=== PATIENT | male | born 1980 | race Caucasian/White ===

== ENCOUNTER 2019-01-22 08:40 | Observation (INO) ==
[2019-01-22] MEDS ORDERED: IOPAMIDOL 100 ML BOTTLE IV ONE (08:41)
[2019-01-22] MEDS ORDERED: 0.9 % SODIUM CHLORIDE 1,000 ML IV ONE (08:49)
[2019-01-22] MEDS ORDERED: 0.9 % SODIUM CHLORIDE 2,000 ML IV ONE (09:35)
[2019-01-22] MEDS ORDERED: ONDANSETRON 4 MG/2 ML VIAL IV ONE (09:35)
[2019-01-22 09:36] LABS: Mean Cell Volume 93.5 fL (80.0-100.0); Mean Corpuscular HGB Conc 33.1 g/dL (31.0-36.0); Platelet Count 293 K/mcL (140-440); RBC 5.93 M/mcL (4.50-5.90); Red Cell Distribution Width 12.2 % (11.5-14.5)
--- NOTE | 2019-01-22 09:39 | Emergency Department Note ---
Abdominal Pain HPI - General Chief Complaint: Abdominal Pain Stated Complaint: right lower abd pain, diarrhea, nausea Time Seen by Provider: 01/22/19 09:30 Source: patient Mode of arrival: ambulatory Limitations: no limitations - History of Present Illness HPI Narrative: 38-year-old male complaining of right lower quadrant pain for the last 48 hours. It is severe sharp crampy. Not taking any medicine for. He has had nausea vomiting and diarrhea with that. He is having to hold onto that area- Crampy colicky. Denies fever. No difficulty urinating but he has been having trouble staying hydrated - Related Data Home Medications Medication Instructions Recorded Confirmed No Known Home Meds 01/22/19 01/22/19 Allergies Allergy/AdvReac Type Severity Reaction Status Date / Time No Known Drug Allergies Allergy Verified 09/27/17 13:51 Review of Systems All systems ED: reviewed and negative except as stated. Abdominal Pain PMH - Past Medical History Attestation: Yes: The following information was validated with the patient. Medical history: Reports: arthritis Surgical history ED: Reports: orthopedic, other (Multiple knee) Psychiatric history: Reports: no psych history, other (suspect depression due to pain and debility) - Social History Smoking status: Current some day smoker Alcohol use: Reports: Unknown Drug use: Reports: none Physical Exam Some distress secondary to pain. Normocephalic atraumatic. Conjunctive are clear sclerae nonicteric. No nasal discharge or congestion. Oropharynx pink moist.. Neck is supple without lymphadenopathy thyromegaly. No carotid bruit. Heart is regular rate and rhythm no murmur appreciated. Lungs clear to auscultation bilaterally without wheezes rales rhonchi or respiratory distress. Abdomen is somewhat firm but nondistended. Very tender right lower quadrant. Worse with pressure. McBurney's point positive. No pedal edema. Alert oriented able answer questions properly Limitations: no limitations Course Vital Signs Temperature 97.4 F 01/22/19 08:41 Pulse Rate 89 01/22/19 08:41 Respiratory Rate 20 01/22/19 08:41 Blood Pressure 137/97 01/22/19 08:41 Pulse Oximetry (%) 98 01/22/19 08:41 Temperature 97.4 F 01/22/19 08:41 Pulse Rate 89 01/22/19 08:41 Respiratory Rate 20 01/22/19 08:41 Blood Pressure 145/101 01/22/19 09:31 Pulse Oximetry (%) 98 01/22/19 08:41 Abdominal Pain - Lab Data Lab results reviewed: Yes I reviewed the patient's lab results. Result diagrams: 01/22/19 08:57 01/22/19 08:57 Lab Results 01/22/19 01/22/19 01/22/19 Range/Units 08:57 08:57 08:57 WBC 11.9 H (4.5-11.0) K/mcL RBC 5.93 H (4.50-5.90) M/mcL Hgb 18.3 H (13.5-16.5) g/dL Hct 55.4 H (41.0-55.0) % MCV 93.5 (80.0-100.0) fL MCH 30.9 (26.0-34.0) pg MCHC 33.1 (31.0-36.0) g/dL RDW 12.2 (11.5-14.5) % Plt Count 293 (140-440) K/mcL MPV 7.6 (7.4-10.4) fL Total Counted 100 Seg Neutrophils % 78 (38-78) % Band Neutrophils % Not Reportable Lymphocytes % 18 (15-49) % Monocytes % (Manual) 4 (1-12) % Platelet Estimate Normal (NORMAL) RBC Morphology Normal (NORMAL) VBG Lactic Acid 1.0 (0.5-2.0) mmol/L Sodium 138 (133-145) mmol/L Potassium 4.3 (3.3-5.1) mmol/L Chloride 104 (96-108) mmol/L Carbon Dioxide 22 (22-30) mmol/L Anion Gap 12.0 (8-16) BUN 18 (6-20) mg/dl Creatinine 1.0 (0.7-1.2) mg/dl GFR Calculation 96 Glucose 103 (70-105) mg/dL Calcium 9.9 (8.6-10.4) mg/dl Total Bilirubin 0.6 (0.0-1.0) mg/dL AST 20 (0-37) U/l ALT 31 (0-40) U/l Alkaline Phosphatase 70 (39-117) U/L Total Protein 8.2 (5.9-8.4) gm/dL Albumin 4.9 (3.2-5.2) gm/dL Globulin 3.3 (2.2-3.7) gm/dL Albumin/Globulin Ratio 1.5 (1.0-2.3) Lipase (7-60) U/L 01/22/19 Range/Units 08:57 WBC (4.5-11.0) K/mcL RBC (4.50-5.90) M/mcL Hgb (13.5-16.5) g/dL Hct (41.0-55.0) % MCV (80.0-100.0) fL MCH (26.0-34.0) pg MCHC (31.0-36.0) g/dL RDW (11.5-14.5) % Plt Count (140-440) K/mcL MPV (7.4-10.4) fL Total Counted Seg Neutrophils % (38-78) % Band Neutrophils % Lymphocytes % (15-49) % Monocytes % (Manual) (1-12) % Platelet Estimate (NORMAL) RBC Morphology (NORMAL) VBG Lactic Acid (0.5-2.0) mmol/L Sodium (133-145) mmol/L Potassium (3.3-5.1) mmol/L Chloride (96-108) mmol/L Carbon Dioxide (22-30) mmol/L Anion Gap (8-16) BUN (6-20) mg/dl Creatinine (0.7-1.2) mg/dl GFR Calculation Glucose (70-105) mg/dL Calcium (8.6-10.4) mg/dl Total Bilirubin (0.0-1.0) mg/dL AST (0-37) U/l ALT (0-40) U/l Alkaline Phosphatase (39-117) U/L Total Protein (5.9-8.4) gm/dL Albumin (3.2-5.2) gm/dL Globulin (2.2-3.7) gm/dL Albumin/Globulin Ratio (1.0-2.3) Lipase 26 (7-60) U/L - Radiology Data Radiology results reviewed: Yes I reviewed the patient's radiology results. CT scan shows equivocal early appendicitis but otherwise unremarkable Disposition Pt seen by [facility] [facility]/PA only: No Clinical Impression: Acute appendicitis Qualifiers: Acute appendicitis type: with localized peritonitis Appendicitis gangrene presence: unspecified whether gangrene present Appendicitis perforation presence: without perforation Appendicitis abscess presence: without abscess Qualified Code(s): K35.30 - Acute appendicitis with localized peritonitis, without perforation or gangrene Summary: Right lower quadrant pain with nausea vomiting diarrhea. Concern for possible appendicitis versus gastroenteritis. Start IV fluids Zofran Dilaudid for pain. Laboratory and CT scan abdomen pelvis for workup CT scan was equivocal for appendicitis, the base the appendix is dilated which suggests early appendicitis. He does have features of appendicitis including leukocytosis severe right lower quadrant pain and an equivocal CT scan. However other features are less classic such as nausea vomiting diarrhea and an otherwise unremarkable CT scan, i.e. no fat stranding or fluid collection. Discussed case with Dr. Ken Freeman who agreed to accept the patient for observation status to monitor to see if this is appendicitis versus gastroenteritis. We will start antibiotic after blood culture Disposition: Xfer As Outpt/Obs ([facility]) Condition: Fair Referrals: Fast,Jose Eduardo, COMPANY DOCTOR [Primary Care Provider] -
[2019-01-22] MEDS: HYDROmorphone 2 MG/ML VIAL IV PRN ×6 (09:51→22:20)
[2019-01-22 09:52] LABS: ALT/SGPT 31 U/l (0-40); Albumin 4.9 gm/dL (3.2-5.2); Albumin/Globulin Ratio 1.5 (1.0-2.3); Alkaline Phosphatase 70 U/L (39-117); Blood Urea Nitrogen 18 mg/dl (6-20)
[2019-01-22 10:16] LABS: Lymphocytes % 18 % (15-49); Monocytes % (Manual) 4 % (1-12); Platelet Estimate NORMAL (NORMAL); RBC Morphology NORMAL (NORMAL); Segmented Neutrophils % 78 % (38-78)
--- NOTE | 2019-01-22 10:41 | Cat Scan Report ---
CLINICAL INFORMATION: Right lower quadrant pain nausea and diarrhea COMPARISON: None. TECHNIQUE: Following injection of intravenous contrast the patient was scanned during the portal venous phase from the diaphragm through the symphysis pubis. Sagittal and coronal reformats were created.. The radiation exposure was limited using dose reduction technology. FINDINGS: The lung bases are clear. The liver, gallbladder, spleen pancreas, adrenals and kidneys are normal. The aorta is normal in caliber and there is no plaque formation. The appendix is relatively elongated and folded upon itself. The base of the appendix is borderline dilated and measuring up to 8 mm. This tapers to 3 mm at the tip. No stone is seen within the lumen and there is no surrounding inflammation. Large and small intestine are otherwise normal without evidence of inflammatory bowel disease, diverticulitis ileus or obstruction. Urinary bladder is decompressed. No abnormality seen within the prostate or seminal vesicles. No ascites mass or adenopathy are present within the abdomen or pelvis. Incidentally noted is a small to intermediate size midline bulge at L4-5. IMPRESSION: Borderline thickened wall of the base of the appendix with no surrounding inflammation. This could be an anatomic variant or early stage of appendicitis. Dr. Huang was called with the results Interpreted and Authenticated by: Mika Enamorado 01/22/19
[2019-01-22] MEDS ORDERED: ceFAZolin 1 GM VIAL IV ONE (10:55)
[2019-01-22] MEDS ORDERED: NALOXONE HCL 0.4 MG/ML VIAL IV PRN (10:55)
[2019-01-22] MEDS ORDERED: PROMETHAZINE 25 MG/ML VIAL IM PRN (10:55)
[2019-01-22] MEDS: LACTATED RINGERS 1,000 ML IV SCH ×2 (11:13→12:45)
[2019-01-22 13:15] LABS: Appearance,Urine CLEAR; Bacteria,Urine 0 /hpf (0); Bilirubin,Urine NEG (NEG); Color,Urine YELLOW; Glucose,Urine (UA) NEGATIVE (NEG); Leukocyte Esterase,Urine NEG /uL (NEG); Protein,Urine NEG (NEG); Specific Gravity,Urine 1.059 (1.000-1.035); Urine Blood NEG mg/dL (<0.03); Urine RBC < 1 /hpf (0-1); Urine Squamous Epithelial Cell < 1 /hpf (0-4); Urine WBC 0 /hpf (0-4); Urobilinogen,Urine NEG (NEG)
--- NOTE | 2019-01-22 14:57 | General Surg History&Physical ---
History of Present Illness Patient information: Note initiated : 01/22/19 at 2:55 pm Service Date, if different from initiated Date: [] Patient: Ayush Yoon a 38 y/o M admitted on 01/22/19 for Right Lower Abd Pain, Diarrhea, Nausea. Chief Complaint: [] HPI: Mr. Yoon is a 38 year old M admitted for abdominal pain. The patient had onset of abdominal pain in the dietitian consultant 21 January. This was followed by burping and then multiple episodes of diarrhea. The pain localized to her lower abdomen on both sides and became much worse about 3 AM this morning. This was followed by multiple episodes of nausea and vomiting totaling about 6 times. This was followed by more diarrheal stools. Since his pain was worse he was seen in the emergency room where he was found to have mild leukocytosis of 11.[address] which showed minimal thickening of the base of the appendix without any periappendiceal edema or fecalith. The pain now is localized in the right lower quadrant. Patient is admitted for treatment and observation. Most likely diagnosis is acute toxic gastroenteritis but must rule out appendicitis Review of Systems - Constitutional no fatigue, no fever(s), no malaise, no weakness - EENT Nose, mouth and throat: no dysphagia, no mouth pain - Cardiovascular no chest pain, no claudication, no dyspnea on exertion, no palpatations, no slow heart rate, no syncope - Respiratory no cough, no dyspnea on exertion, no wheezing, no pain on inspirtation, no excessive phlegm production, no pain with cough - Gastrointestinal belching, bloating, cramping, diarrhea (no as well the different things as Ceasar for similar FCR a), heartburn, loose stools, nausea (jellaghe), vomiting ( mental status: No known) - Genitourinary no dysuria, no urinary frequency, no urinary hesitancy - Musculoskeletal abnormal gait, arthralgias, joint swelling, stiffness Past History Past surgical history: Multiple operative procedures left knee A tonsillectomy Past family history: Mother age 67 healthy father age 66 diabetes mellitus and myasthenia gravis 2 siblings alive and well without illness Past social history: Everyday tobacco use Occasional alcohol use Denies drug use Medications and Allergies Home Medications Medication Instructions Recorded Confirmed Type No Known Home Meds 01/22/19 01/22/19 History Allergies Allergy/AdvReac Type Severity Reaction Status Date / Time No Known Drug Allergies Allergy Verified 09/27/17 13:51 Exam Temp Pulse Resp BP Pulse Ox 96.1 F L 81 20 142/64 97 01/22/19 12:24 01/22/19 12:24 01/22/19 12:24 01/22/19 12:24 01/22/19 12:24 - General physical appearance well developed, well nourished, no distress - Eyes PERRL, normal ocular movement - ENT normal pinna, normal nares, normal mucosa, no hearing loss, no congestion - Head Head exam IM: Present: atraumatic, normocephalic - Neck no masses, no bruits, trachea midline, no lymphadenopathy, no venous distension - Cardiovascular Cardiovascular exam IM: Present: normal rate and rhythm - Respiratory normal expansion, normal respiratory effort, clear to percussion, clear to auscultation - Abdomen Abdomen: Present: soft, tender (moderate tenderness right lower quadrant and hypogastrium; good active bowel sounds; no mass), bowel sounds Hernia: Present: none - Genitourinary Present: normal penis with no external lesions - Integumentary Present: no rash, no growths, no abnormal pigmentation - Neurologic Present: normal coordination, normal sensation - Musculoskeletal Present: normal gait, normal posture, other (operative changes left knee with mild swelling and hypertrophy) - Psychiatric Present: oriented to time, oriented to person, oriented to place, speech is normal, memory intact Assessment and Plan (1) Acute abdominal pain in right lower quadrant Continue antibiotics Follow-up labs and abdominal x-rays in the morning May have clear liquids to night Status: Acute (2) Nausea, vomiting, and diarrhea Status: Acute
[2019-01-22] MEDS: DICYCLOMINE 20 MG TABLET PO SCH ×2 (15:42→20:45)
[2019-01-22] MEDS: 0.9 % SODIUM CHLORIDE 1,000 ML IV SCH ×2 (15:42→22:46)
[2019-01-22] MEDS: NICOTINE 21 MG PATCH TOPICAL SCH (16:00)
[2019-01-22] MEDS: ONDANSETRON 4 MG/2 ML VIAL IV PRN (16:03)
[2019-01-22] MEDS: PIPERACILLIN SODIUM/TAZOBACTAM 3.375 GM in DEXTROSE 5% IN WATER 50 ML IV SCH ×2 (17:31→23:49)
[2019-01-22] MEDS ORDERED: CALCIUM CARBONATE 500 MG TAB.CHEW CHEWED PRN (18:09)
[2019-01-22] MEDS: PANTOPRAZOLE 40 MG VIAL IV SCH (19:28)
[2019-01-23] MEDS: HYDROmorphone 2 MG/ML VIAL IV PRN ×7 (03:59→22:32)
[2019-01-23 05:39] LABS: Basophils # (Auto) 0 K/mcL (0.0-0.3); Basophils % (Auto) 0.3 % (0.0-2.0); Eosinophils # (Auto) 0.2 K/mcL (0.0-0.7); Eosinophils % (Auto) 2.5 % (0.0-7.0); Granulocytes % (Auto) 57.9 % (38.0-78.0); Lymphocytes # (Auto) 2.4 K/mcL (1.5-4.8); Lymphocytes % (Auto) 31.7 % (15.5-49.0); Mean Cell Volume 93.8 fL (80.0-100.0); Monocytes # (Auto) 0.6 K/mcL (0.1-0.9); Monocytes % (Auto) 7.6 % (1.0-12.0); Platelet Count 218 K/mcL (140-440); RBC 4.31 M/mcL (4.50-5.90); Red Cell Distribution Width 12.4 % (11.5-14.5)
[2019-01-23] MEDS: 0.9 % SODIUM CHLORIDE 1,000 ML IV SCH ×5 (05:40→23:37)
[2019-01-23] MEDS: PIPERACILLIN SODIUM/TAZOBACTAM 3.375 GM in DEXTROSE 5% IN WATER 50 ML IV SCH ×4 (05:51→23:34)
[2019-01-23 06:05] LABS: ALT/SGPT 18 U/l (0-40); Albumin 3.6 gm/dL (3.2-5.2); Albumin/Globulin Ratio 1.6 (1.0-2.3); Alkaline Phosphatase 47 U/L (39-117); Bilirubin,Direct < 0.2 mg/dL (0.0-0.3); Blood Urea Nitrogen 13 mg/dl (6-20); Gamma Glutamyl Transpeptidase 21 U/L (8-61); Uric Acid 5.3 mg/dL (2.5-8.0)
[2019-01-23] MEDS: PANTOPRAZOLE 40 MG VIAL IV SCH ×2 (06:51→17:35)
[2019-01-23] MEDS ORDERED: PANTOPRAZOLE 40 MG VIAL IV SCH (07:30)
[2019-01-23] MEDS: ONDANSETRON 4 MG/2 ML VIAL IV PRN (08:03)
[2019-01-23] MEDS: DICYCLOMINE 20 MG TABLET PO SCH ×4 (08:13→21:24)
[2019-01-23] MEDS ORDERED: BENZOCAINE/MENTHOL 1 LOZENGE PO PRN (08:16)
[2019-01-23] MEDS ORDERED: MAGNESIUM SULFATE IN WATER 4 GM/100 ML BAG IV ONE (08:30)
[2019-01-23] MEDS: NICOTINE 21 MG PATCH TOPICAL SCH ×2 (09:59→15:45)
--- NOTE | 2019-01-23 13:14 | General Surgery Progress Note ---
Subjective Patient reports: still having pain, tolerating liquids well, flatus, afebrile Narrative: Note initiated : 01/23/19 at 1:11 pm Service Date, if different from initiated Date: [] Patient: Ayush Yoon 38 y/o M admitted on 01/22/19 for Right Lower Abd Pain, Diarrhea, Nausea. Chief Complaint: [patient is afebrile. He still has pain in the right lower quadrant. He is tolerating liquids without difficulty though he does have mild nausea. White blood count 7.5, magnesium 1.5.] Objective Temp Pulse Resp BP Pulse Ox 96.1 F L 65 16 116/72 96 01/23/19 11:25 01/23/19 11:25 01/23/19 11:25 01/23/19 11:25 01/23/19 11:25 - Additional Data Intake & Output - Last 24 hours: Intake & Output 01/21/19 01/22/19 01/23/19 01/24/19 05:59 05:59 05:59 05:59 Intake Total 4839 700 Output Total 325 875 Balance 4514 -175 Weight 282 lb 14.4 oz - General physical appearance well developed, well nourished, no distress - Eyes PERRL, normal ocular movement - ENT normal pinna, normal nares, normal mucosa, no hearing loss, no congestion - Neck no masses, no bruits, trachea midline, no lymphadenopathy, no venous distension - Respiratory normal expansion, normal respiratory effort, clear to auscultation - Cardiovascular Cardiovascular exam: Present: normal rate and rhythm, RRR, +S1, +S2. Absent: JVD, tachycardia - Abdomen tender (moderate tenderness right lower abdomen diffusely over the entire right lower quadrant; good active bowel sounds; mild distention), bowel sounds (present), surgical scars (none), masses (none) - Integumentary no rash, no growths, no abnormal pigmentation - Neurologic normal coordination, normal sensation - Musculoskeletal normal gait, normal posture - Psychiatric oriented to time, oriented to person, oriented to place, speech is normal, memory intact - Labs 01/23/19 04:00 01/23/19 04:00 Diabetes panel 01/23/19 Range/Units 04:00 Sodium 137 (133-145) mmol/L Potassium 3.7 (3.3-5.1) mmol/L Chloride 103 (96-108) mmol/L Carbon Dioxide 28 (22-30) mmol/L BUN 13 (6-20) mg/dl Creatinine 0.9 (0.7-1.2) mg/dl Glucose 88 (70-105) mg/dL Calcium 8.1 L (8.6-10.4) mg/dl AST 12 (0-37) U/l ALT 18 (0-40) U/l Alkaline Phosphatase 47 (39-117) U/L Total Protein 5.8 L (5.9-8.4) gm/dL Albumin 3.6 (3.2-5.2) gm/dL Triglycerides 141 (<150) mg/dl Calcium panel 01/23/19 Range/Units 04:00 Calcium 8.1 L (8.6-10.4) mg/dl Phosphorus 2.7 (2.7-4.5) mg/dL Albumin 3.6 (3.2-5.2) gm/dL Pituitary panel 01/23/19 Range/Units 04:00 Sodium 137 (133-145) mmol/L Potassium 3.7 (3.3-5.1) mmol/L Chloride 103 (96-108) mmol/L Carbon Dioxide 28 (22-30) mmol/L BUN 13 (6-20) mg/dl Creatinine 0.9 (0.7-1.2) mg/dl Glucose 88 (70-105) mg/dL Calcium 8.1 L (8.6-10.4) mg/dl Adrenal panel 01/23/19 Range/Units 04:00 Sodium 137 (133-145) mmol/L Potassium 3.7 (3.3-5.1) mmol/L Chloride 103 (96-108) mmol/L Carbon Dioxide 28 (22-30) mmol/L BUN 13 (6-20) mg/dl Creatinine 0.9 (0.7-1.2) mg/dl Glucose 88 (70-105) mg/dL Calcium 8.1 L (8.6-10.4) mg/dl Total Bilirubin 0.6 (0.0-1.0) mg/dL AST 12 (0-37) U/l ALT 18 (0-40) U/l Alkaline Phosphatase 47 (39-117) U/L Total Protein 5.8 L (5.9-8.4) gm/dL Albumin 3.6 (3.2-5.2) gm/dL Assessment and Plan (1) Acute abdominal pain in right lower quadrant Status: Acute Assessment and plan: Patient will continue present therapy throughout the night. If his right lower quadrant tenderness persists he has been informed that diagnostic laparoscopy with probable appendectomy will be done tomorrow. He'll be made nothing by mouth after midnight. Current Visit: Yes (2) Nausea, vomiting, and diarrhea Status: Acute Assessment and plan: Nausea persists but vomiting has resolved Current Visit: Yes - Time Spent With Patient Total time spent is greater than 50% in coordination of care (as documented) at patient's floor/unit and/or counseling patient:
[2019-01-24] MEDS: HYDROmorphone 2 MG/ML VIAL IV PRN ×7 (03:23→23:21)
[2019-01-24] MEDS: PIPERACILLIN SODIUM/TAZOBACTAM 3.375 GM in DEXTROSE 5% IN WATER 50 ML IV SCH ×3 (05:27→18:05)
[2019-01-24 06:08] LABS: Basophils # (Auto) 0 K/mcL (0.0-0.3); Basophils % (Auto) 0.3 % (0.0-2.0); Eosinophils # (Auto) 0.2 K/mcL (0.0-0.7); Eosinophils % (Auto) 2.8 % (0.0-7.0); Granulocytes % (Auto) 63.3 % (38.0-78.0); Lymphocytes # (Auto) 2.1 K/mcL (1.5-4.8); Lymphocytes % (Auto) 27.1 % (15.5-49.0); Mean Cell Volume 94.3 fL (80.0-100.0); Mean Corpuscular HGB Conc 32.8 g/dL (31.0-36.0); Monocytes # (Auto) 0.5 K/mcL (0.1-0.9); Monocytes % (Auto) 6.5 % (1.0-12.0); Platelet Count 224 K/mcL (140-440); RBC 4.54 M/mcL (4.50-5.90)
[2019-01-24 06:56] LABS: ALT/SGPT 16 U/l (0-40); Albumin 3.8 gm/dL (3.2-5.2); Albumin/Globulin Ratio 1.6 (1.0-2.3); Alkaline Phosphatase 50 U/L (39-117); Bilirubin,Direct < 0.2 mg/dL (0.0-0.3); Blood Urea Nitrogen 5 mg/dl (6-20); Gamma Glutamyl Transpeptidase 23 U/L (8-61); Uric Acid 4.5 mg/dL (2.5-8.0)
[2019-01-24] MEDS: PANTOPRAZOLE 40 MG VIAL IV SCH ×2 (08:10→18:05)
[2019-01-24] MEDS: 0.9 % SODIUM CHLORIDE 1,000 ML IV SCH ×4 (08:13→23:15)
[2019-01-24] MEDS: DICYCLOMINE 20 MG TABLET PO SCH ×4 (09:13→20:34)
[2019-01-24] MEDS ORDERED: ROCURONIUM 10 MG/ML ML IV ONE (13:10)
[2019-01-24] MEDS ORDERED: PROPOFOL 200 MG/20 ML VIAL IV ONE (13:10)
[2019-01-24] MEDS ORDERED: GLYCOPYRROLATE 0.2 MG/ML VIAL IV ONE (13:10)
[2019-01-24] MEDS ORDERED: SUGAMMADEX SODIUM 200 MG/2 ML VIAL IV ONE (13:10)
[2019-01-24] MEDS ORDERED: MIDAZOLAM 2 MG/2 ML VIAL IV ONE (13:10)
[2019-01-24] MEDS ORDERED: LIDOCAINE HCL/PF 100 MG/5 ML SYRINGE IV ONE (13:10)
[2019-01-24] MEDS ORDERED: KETAMINE 100 MG/ML ML IV ONE (13:10)
[2019-01-24] MEDS ORDERED: fentaNYL 100 MCG/2 ML VIAL IV ONE (13:10)
[2019-01-24] MEDS ORDERED: MEPERIDINE 50 MG/ML INJECTION IM PRN (13:56)
[2019-01-24] MEDS ORDERED: ACETAMINOPHEN 1,000 MG/100 ML BOTTLE IV ONE (13:56)
[2019-01-24] MEDS ORDERED: ONDANSETRON 4 MG/2 ML VIAL IV PRN ×2 (13:56→15:36)
[2019-01-24] MEDS ORDERED: KETOROLAC 30 MG/ML VIAL IV PRN (13:56)
[2019-01-24] MEDS ORDERED: IPRATROPIUM/ALBUTEROL 3 ML AMPUL.NEB NEB PRN (13:56)
[2019-01-24] MEDS ORDERED: MEPERIDINE 25 MG/ML SYRINGE IV PRN (13:56)
[2019-01-24] MEDS ORDERED: PROMETHAZINE 25 MG/ML VIAL IM PRN (13:56)
[2019-01-24] MEDS ORDERED: HYDROmorphone 2 MG/ML VIAL IV PRN (13:56)
[2019-01-24] MEDS ORDERED: LACTATED RINGERS 1,000 ML IV SCH (14:00)
--- NOTE | 2019-01-24 14:10 | Brief Operative Note ---
Date of procedure: 01/24/19 Pre-op diagnosis: right lower quadrant pain Post-op diagnosis: other (right lower quadrant pain;meckel's diverticulum) Procedure: laparoscopic appendectomy and Meckel's diverticulectomy Grafts/Implants: No Anesthesia: GETA Findings: mild erythema of appendix and terminal ileum without exudate Meckel's diverticulum Complications: none Surgeon: Nasreen Freeman Estimated blood loss (cc): 10 Specimens Removed/Pathology: other (appendix; Meckel's diverticulum) Condition: stable Disposition: PACU
[2019-01-24] MEDS ORDERED: MEPERIDINE 50 MG/ML INJECTION ONE (14:20)
[2019-01-24] MEDS: fentaNYL 100 MCG/2 ML VIAL IV PRN ×4 (14:37→14:50)
[2019-01-24] MEDS ORDERED: METOPROLOL TARTRATE 5 MG/5 ML VIAL IV ONE ×2 (14:43→14:44)
[2019-01-24] MEDS ORDERED: CALCIUM CARBONATE 500 MG TAB.CHEW CHEWED PRN (15:36)
[2019-01-24] MEDS ORDERED: BENZOCAINE/MENTHOL 1 LOZENGE PO PRN (15:36)
[2019-01-24] MEDS ORDERED: NALOXONE HCL 0.4 MG/ML VIAL IV PRN (15:36)
[2019-01-24] MEDS: NICOTINE 21 MG PATCH TOPICAL SCH (15:50)
[2019-01-24] MEDS: LORazepam 2 MG/ML VIAL IV PRN (21:27)
[2019-01-25] MEDS: PIPERACILLIN SODIUM/TAZOBACTAM 3.375 GM in DEXTROSE 5% IN WATER 50 ML IV SCH ×5 (00:25→23:59)
[2019-01-25] MEDS: HYDROmorphone 2 MG/ML VIAL IV PRN ×6 (01:47→19:25)
[2019-01-25 06:04] LABS: Basophils # (Auto) 0 K/mcL (0.0-0.3); Basophils % (Auto) 0.2 % (0.0-2.0); Eosinophils # (Auto) 0.2 K/mcL (0.0-0.7); Eosinophils % (Auto) 2.8 % (0.0-7.0); Granulocytes % (Auto) 64.8 % (38.0-78.0); Lymphocytes # (Auto) 1.9 K/mcL (1.5-4.8); Lymphocytes % (Auto) 24.9 % (15.5-49.0); Mean Cell Volume 93.3 fL (80.0-100.0); Mean Corpuscular HGB Conc 33.5 g/dL (31.0-36.0); Monocytes # (Auto) 0.6 K/mcL (0.1-0.9); Monocytes % (Auto) 7.3 % (1.0-12.0); Platelet Count 239 K/mcL (140-440); RBC 4.62 M/mcL (4.50-5.90); Red Cell Distribution Width 12.4 % (11.5-14.5)
[2019-01-25 06:21] LABS: ALT/SGPT 15 U/l (0-40); Albumin 3.9 gm/dL (3.2-5.2); Albumin/Globulin Ratio 1.6 (1.0-2.3); Alkaline Phosphatase 55 U/L (39-117); Bilirubin,Direct < 0.2 mg/dL (0.0-0.3); Blood Urea Nitrogen 5 mg/dl (6-20); Gamma Glutamyl Transpeptidase 31 U/L (8-61); Uric Acid 4.3 mg/dL (2.5-8.0)
[2019-01-25] MEDS: NICOTINE 21 MG PATCH TOPICAL SCH ×2 (07:35→08:04)
[2019-01-25] MEDS: 0.9 % SODIUM CHLORIDE 1,000 ML IV SCH ×4 (07:35→23:59)
[2019-01-25] MEDS: PANTOPRAZOLE 40 MG VIAL IV SCH ×2 (07:35→18:12)
[2019-01-25] MEDS: DICYCLOMINE 20 MG TABLET PO SCH ×4 (07:35→21:31)
[2019-01-25] MEDS: LORazepam 2 MG/ML VIAL IV PRN ×2 (12:02→21:31)
[2019-01-25] MEDS ORDERED: ACETAMINOPHEN 1,000 MG in PREMIX 1 BAG IV SCH (15:00)
--- NOTE | 2019-01-25 15:02 | General Surgery Progress Note ---
Subjective Patient reports: feels better, still having pain, flatus, no bowel movement, afebrile Narrative: Note initiated : 01/25/19 at 3:00 pm Service Date, if different from initiated Date: [] Patient: Ayush Yoon 38 y/o M admitted on 01/22/19 for Right Lower Abd Pain, Diarrhea, Nausea. Chief Complaint: [patient is stable but he's having significant pain. The pain is different than the preoperative. He's had flatus but no bowel movement. He has mild nausea still though he did tolerate his full liquid diet. He is afebrile. White blood count 7.7 hemoglobin 14.4.] Objective Temp Pulse Resp BP Pulse Ox 98.2 F 90 16 127/80 94 01/25/19 12:00 01/25/19 12:00 01/25/19 12:00 01/25/19 12:00 01/25/19 12:00 - Additional Data Intake & Output - Last 24 hours: Intake & Output 01/23/19 01/24/19 01/25/19 01/26/19 05:59 05:59 05:59 05:59 Intake Total 4839 5530 4592 1900 Output Total 325 1425 1000 Balance 4514 4105 3592 1900 Weight 282 lb 14.4 oz 286 lb 287 lb - General physical appearance well developed, well nourished, moderate distress, moderate pain - Eyes PERRL, normal ocular movement - ENT normal pinna, normal nares, normal mucosa, no hearing loss, no congestion - Neck no masses, no bruits, trachea midline, no lymphadenopathy, no venous distension - Respiratory normal expansion, normal respiratory effort, clear to auscultation - Cardiovascular Cardiovascular exam: Present: normal rate and rhythm, RRR, +S1, +S2. Absent: JVD, tachycardia - Abdomen tender (moderate incisional tenderness; tenderness in right lower quadrant is not as prominent as preop; active bowel sounds), bowel sounds (present), surgical scars (none), masses (none) - Integumentary no rash, no growths, no abnormal pigmentation - Neurologic normal coordination, normal sensation - Musculoskeletal normal gait, normal posture - Psychiatric oriented to time, oriented to person, oriented to place, speech is normal, bao forrest intact - Labs 01/25/19 04:21 01/25/19 04:21 Diabetes panel 01/25/19 Range/Units 04:21 Sodium 141 (133-145) mmol/L Potassium 4.0 (3.3-5.1) mmol/L Chloride 106 (96-108) mmol/L Carbon Dioxide 27 (22-30) mmol/L BUN 5 L (6-20) mg/dl Creatinine 0.8 (0.7-1.2) mg/dl Glucose 96 (70-105) mg/dL Calcium 8.8 (8.6-10.4) mg/dl AST 14 (0-37) U/l ALT 15 (0-40) U/l Alkaline Phosphatase 55 (39-117) U/L Total Protein 6.4 (5.9-8.4) gm/dL Albumin 3.9 (3.2-5.2) gm/dL Triglycerides 80 (<150) mg/dl Calcium panel 01/25/19 Range/Units 04:21 Calcium 8.8 (8.6-10.4) mg/dl Phosphorus 2.2 L (2.7-4.5) mg/dL Albumin 3.9 (3.2-5.2) gm/dL Pituitary panel 01/25/19 Range/Units 04:21 Sodium 141 (133-145) mmol/L Potassium 4.0 (3.3-5.1) mmol/L Chloride 106 (96-108) mmol/L Carbon Dioxide 27 (22-30) mmol/L BUN 5 L (6-20) mg/dl Creatinine 0.8 (0.7-1.2) mg/dl Glucose 96 (70-105) mg/dL Calcium 8.8 (8.6-10.4) mg/dl Adrenal panel 01/25/19 Range/Units 04:21 Sodium 141 (133-145) mmol/L Potassium 4.0 (3.3-5.1) mmol/L Chloride 106 (96-108) mmol/L Carbon Dioxide 27 (22-30) mmol/L BUN 5 L (6-20) mg/dl Creatinine 0.8 (0.7-1.2) mg/dl Glucose 96 (70-105) mg/dL Calcium 8.8 (8.6-10.4) mg/dl Total Bilirubin 0.7 (0.0-1.0) mg/dL AST 14 (0-37) U/l ALT 15 (0-40) U/l Alkaline Phosphatase 55 (39-117) U/L Total Protein 6.4 (5.9-8.4) gm/dL Albumin 3.9 (3.2-5.2) gm/dL Assessment and Plan (1) Acute abdominal pain in right lower quadrant Status: Acute Assessment and plan: clinically improved but still with uncontrolled pain nausea Discharge delayed until evaluated tomorrow Current Visit: Yes (2) Nausea, vomiting, and diarrhea Status: Acute Assessment and plan: Nausea persists but vomiting has resolved Current Visit: Yes - Time Spent With Patient Total time spent is greater than 50% in coordination of care (as documented) at patient's floor/unit and/or counseling patient:
[2019-01-25] MEDS: ACETAMINOPHEN 1,000 MG/100 ML BOTTLE IV SCH ×2 (15:14→20:55)
[2019-01-25] MEDS: oxyCODONE HCL 5 MG TABLET PO PRN (20:05)
[2019-01-26] MEDS: HYDROmorphone 2 MG/ML VIAL IV PRN ×4 (00:54→16:14)
[2019-01-26] MEDS: ACETAMINOPHEN 1,000 MG/100 ML BOTTLE IV SCH ×2 (03:09→07:50)
[2019-01-26] MEDS: oxyCODONE HCL 5 MG TABLET PO PRN ×5 (04:07→16:07)
[2019-01-26] MEDS: PIPERACILLIN SODIUM/TAZOBACTAM 3.375 GM in DEXTROSE 5% IN WATER 50 ML IV SCH ×2 (05:53→11:38)
[2019-01-26] MEDS: PANTOPRAZOLE 40 MG VIAL IV SCH (07:39)
[2019-01-26] MEDS: 0.9 % SODIUM CHLORIDE 1,000 ML IV SCH ×2 (07:52→15:38)
[2019-01-26] MEDS: NICOTINE 21 MG PATCH TOPICAL SCH (10:06)
[2019-01-26] MEDS: DICYCLOMINE 20 MG TABLET PO SCH ×2 (10:07→13:32)
--- NOTE | 2019-01-26 13:59 | Surgical Pathology Report ---
HISTOLOGY SPECIMEN MICROSCOPIC DIAGNOSIS SPECIMEN A - APPENDIX, APPENDECTOMY: -- NO DIAGNOSTIC ALTERATIONS. SPECIMEN B - SMALL INTESTINE, DESIGNATED MECKEL'S DIVERTICULUM, EXCISION: -- POUCH-LIKE SEGMENT OF SMALL INTESTINAL MUCOSA, CONSISTENT WITH MECKEL'S DIVERTICULUM. -- NO METAPLASTIC EPITHELIUM, DYSPLASIA OR MALIGNANCY IDENTIFIED. -- MARGIN VIABLE. (DMT:sln) CLINICAL HISTORY Right lower quadrant pain. PROCEDURAL IMPRESSION Meckel's diverticulum. GROSS DESCRIPTION Specimen A: Received in formalin designated appendix, is a sanford-soliman appendix with attached soliman fat that measures 7.5 cm in length and up to 0.9 cm in diameter. The margin is stapled, this is inked black. Within the fat there is a 4 cm stapled margin. Cut surfaces are soliman with brown fecal material. Traveling Buyer sections submitted in one cassette. Specimen B: Received in formalin designated small bowel, is a 2.8 x 2.3 x 2.3 cm pouch-like portion of intestine closed at one end by a 3.2 cm long staple line. The serosa is soliman-pink, smooth and glistening. The bowel wall is on averaged 0.2 cm thick. The mucosa is soliman and plicated. The margin is inked black. The margin and a corporate sales representative section are submitted in one cassette. (SCB:sln) Electronically Signed by: Juan Coyle M.D.
--- NOTE | 2019-01-26 16:02 | Discharge Summary ---
Providers - Providers Patient information: Note initiated : 01/26/19 at 4:01 pm Service Date, if different from initiated Date: [] Patient: Ayush Yoon 38 y/o M admitted on 01/22/19 for Right Lower Abd Pain, Diarrhea, Nausea. Chief Complaint: [] Date of admission: 01/22/19 Discharge date: 01/26/19 Attending physician: Nasreen Freeman Hospitalization Hospital course: 38-year-old male admitted on 22 January with nausea vomiting and diarrhea with mild leukocytosis. There was questionable findings of appendicitis. The patient was admitted and monitored. He was still symptomatic on the 23 of January so it was decided to do diagnostic laparoscopy on the . At laparoscopy he was noted to have mild inflammation of the terminal ileum with a normal-appearing appendix and an incidental Meckel's diverticulum. Appendectomy and Meckel's diverticulectomy were done. Patient has done relatively well. He had some difficulty with pain control but that is improved. He is now tolerating a regular diet. Pain is controlled with oral analgesics. Patient is stable and is discharged home. He will be seeing him in the office in 2 weeks. Discharge diagnosis: right lower quadrant pain Secondary discharge diagnosis: Gastroenteritis Meckel's diverticulum Reason for admission: right lower quadrant pain with nausea and vomiting Procedures: Laparoscopic appendectomy and Meckel's diverticulectomy Pertinent studies/significant findings: CT of abdomen and pelvis with contrast Complications: None Exam Temp Pulse Resp BP Pulse Ox 97.9 F 61 16 127/73 96 01/26/19 15:05 01/26/19 08:00 01/26/19 15:05 01/26/19 15:05 01/26/19 15:05 - General physical appearance well developed, well nourished, no distress - Eyes PERRL, normal ocular movement - ENT normal pinna, normal nares, normal mucosa, no hearing loss, no congestion - Head Head exam IM: Present: atraumatic, normocephalic - Neck no masses, no bruits, trachea midline, no lymphadenopathy, no venous distension - Cardiovascular Cardiovascular exam IM: Present: normal rate and rhythm - Respiratory normal expansion, normal respiratory effort, clear to percussion, clear to auscultation - Abdomen Abdomen: Present: tender (mild incisional tenderness; good active bowel sounds), bowel sounds Hernia: Present: none - Genitourinary Present: normal penis with no external lesions - Integumentary Present: no rash, no growths, no abnormal pigmentation - Neurologic Present: normal coordination, normal sensation - Musculoskeletal Present: normal gait, normal posture - Psychiatric Present: oriented to time, oriented to person, oriented to place, speech is normal, memory intact Discharge Plan - Patient/Caregiver Discharge Instructions Activity: increase activity as tolerated Diet: Regular Diet Additional Instructions: may shower with dressings in place Promethazine every 4 hours as needed for nausea Keep appointment on February 13 Prescriptions: Dicyclomine 20 mg PO QID #30 tablet Nicotine [Nicoderm] 21 mg TOPICAL DAILY@1000 #30 patch oxyCODONE HCL [Roxicodone] 10 mg PO Q4HP PRN #42 tab PRN Reason: Pain Level 3-6 oxyCODONE/APAP [Percocet 5-325 mg] 1 tab PO Q4HP PRN #40 tablet PRN Reason: Pain - Follow up Plan Follow up with: Jose Eduardo Stewart ARNP [Primary Care Provider] - Nasreen Freeman MD [Physician] - 02/08/19 3:00 pm Disposition: Home, Self-Care Prognosis: Good Rehab Potential: Good I certify that the patient requires SNF services.: No Overall status at discharge: patient is progressing back to baseline Pending Studies Resuscitation Status Full Code Diet Regular Diet Start TueJan 25 0344 Calcium Carbonate/Glycine (Tums) 1,000 mg CHEWED Q4HP PRN PRN Reason: Dyspepsia Last Admin: 01/24/19 20:18 Dose: 1,000 mg Documented by: JERTrino Dicyclomine HCl (Dicyclomine) 20 mg PO QID [facility] Last Admin: 01/26/19 13:32 Dose: 20 mg Documented by: [email or web address] Admin: 01/26/19 10:07 Dose: 20 mg Documented by: [email or web address] Admin: 01/25/19 21:31 Dose: 20 mg Documented by: Admin: 01/25/19 18:12 Dose: 20 mg Documented by: Admin: 01/25/19 12:02 Dose: 20 mg Documented by: Admin: 01/25/19 07:35 Dose: 20 mg Documented by: Admin: 01/24/19 20:34 Dose: 20 mg Documented by: [email or web address] Admin: 01/24/19 18:05 Dose: 20 mg Documented by: [email or web address] Hydromorphone HCl (Dilaudid) 1 mg IV Q2HP PRN PRN Reason: PAIN LEVEL > 6 Last Admin: 01/26/19 13:40 Dose: 1 mg Documented by: [id number] Admin: 01/26/19 10:14 Dose: 1 mg Documented by: [email or web address] Admin: 01/26/19 00:54 Dose: 1 mg Documented by: Admin: 01/25/19 19:25 Dose: 1 mg Documented by: Admin: 01/25/19 15:15 Dose: 1 mg Documented by: Admin: 01/25/19 12:03 Dose: 1 mg Documented by: Admin: 01/25/19 08:33 Dose: 1 mg Documented by: Admin: 01/25/19 05:52 Dose: 1 mg Documented by: Admin: 01/25/19 01:47 Dose: 1 mg Documented by: Admin: 01/24/19 23:21 Dose: 1 mg Documented by: Admin: 01/24/19 19:37 Dose: 1 mg Documented by: Admin: 01/24/19 15:40 Dose: 1 mg Documented by: [email or web address] Sodium Chloride (Sodium Chloride 0.9%) 1,000 mls @ 150 mls/hr IV .Q6H40M [facility]AR Last Admin: 01/26/19 15:38 Dose: Not Given Documented by: [email or web address] Admin: 01/26/19 07:52 Dose: 150 mls/hr Documented by: [email or web address] Infusion: 01/26/19 06:40 Dose: 150 mls/hr Documented by: [email or web address] Admin: 01/25/19 23:59 Dose: 150 mls/hr Documented by: Admin: 01/25/19 21:30 Dose: Not Given Documented by: Infusion: 01/25/19 14:16 Dose: 150 mls/hr Documented by: Admin: 01/25/19 09:41 Dose: Not Given Documented by: Admin: 01/25/19 07:35 Dose: 150 mls/hr Documented by: Infusion: 01/25/19 07:11 Dose: 0 mls/hr Documented by: Admin: 01/24/19 23:15 Dose: 150 mls/hr Documented by: Infusion: 01/24/19 23:15 Dose: 150 mls/hr Documented by: Admin: 01/24/19 18:05 Dose: 150 mls/hr Documented by: MARIAMA Piperacillin Sod/Tazobactam (Sod 3.375 gm/ Dextrose) 50 mls @ 100 mls/hr IV Q6H [facility] Last Infusion: 01/26/19 12:08 Dose: 100 mls/hr Documented by: Admin: 01/26/19 11:38 Dose: 100 mls/hr Documented by: Infusion: 01/26/19 06:23 Dose: 100 mls/hr Documented by: Infusion: 01/26/19 06:20 Dose: 100 mls/hr Documented by: Admin: 01/26/19 05:53 Dose: 100 mls/hr Documented by: Infusion: 01/26/19 00:29 Dose: 100 mls/hr Documented by: Admin: 01/25/19 23:59 Dose: 100 mls/hr Documented by: Infusion: 01/25/19 18:42 Dose: 100 mls/hr Documented by: Admin: 01/25/19 18:12 Dose: 100 mls/hr Documented by: Infusion: 01/25/19 12:32 Dose: 0 mls/hr Documented by: Admin: 01/25/19 12:02 Dose: 100 mls/hr Documented by: Infusion: 01/25/19 06:25 Dose: 0 mls/hr Documented by: Admin: 01/25/19 05:55 Dose: 100 mls/hr Documented by: Infusion: 01/25/19 00:55 Dose: 100 mls/hr Documented by: Admin: 01/25/19 00:25 Dose: 100 mls/hr Documented by: Infusion: 01/24/19 18:35 Dose: 100 mls/hr Documented by: Admin: 01/24/19 18:05 Dose: 100 mls/hr Documented by: [email or web address] Lorazepam (Ativan) 1 mg IV HSP PRN PRN Reason: Sleep Last Admin: 01/25/19 21:31 Dose: 1 mg Documented by: Admin: 01/25/19 12:02 Dose: 1 mg Documented by: Admin: 01/24/19 21:27 Dose: 1 mg Documented by: NAN Nicotine (Nicoderm) 21 mg TOPICAL DAILY@1000 [facility] Last Admin: 01/26/19 10:06 Dose: 21 mg Documented by: Admin: 01/25/19 08:04 Dose: Not Given Documented by: Admin: 01/25/19 07:35 Dose: 21 mg Documented by: DENYS Oxycodone HCl (Roxicodone) 10 mg PO Q4HP PRN PRN Reason: PAIN LEVEL 3-6 Last Admin: 01/26/19 12:20 Dose: 10 mg Documented by: Admin: 01/26/19 07:50 Dose: 10 mg Documented by: Admin: 01/26/19 04:07 Dose: 10 mg Documented by: Admin: 01/26/19 00:00 Dose: 10 mg Documented by: Admin: 01/25/19 20:05 Dose: 10 mg Documented by: [email or web address] Pantoprazole Sodium (Protonix) 40 mg IV BIDAC [facility] Last Admin: 01/26/19 07:39 Dose: 40 mg Documented by: Admin: 01/25/19 18:12 Dose: 40 mg Documented by: Admin: 01/25/19 07:35 Dose: 40 mg Documented by: Admin: 01/24/19 18:05 Dose: 40 mg Documented by: MARIAMA Shift Summary 01/26/19 04:28 Shift Summary by Lobito Vale Pt has rested on & off tonight. ABD pain mod well controlled w/ 2x doses IV Dilaudid 1mg - last @ 0055, sched IV OFIRMEV 1000mg, & PRN PO Roxicodone 10mg - last dose given @ 0405 (giving Q4hr). No nausea this shift. NS infusing @ 150ml/hr to his RT hand. 3x ABD lap sites w/ sm amt serosang drainage - abel & film dressing. He has been up AMB in [place] x2, as well as up (I) in rm to & from [place]. Voiding QS per urinal, and passing some flatus. Pt has tolerated a Reg diet. VS - WNL on R.A.. He is A&O x4, calm, pleasant, & cooperative. Pt is looking forward to D/C later today. Initialized on 01/26/19 04:28 - END OF NOTE
[2019-01-26] MEDS ORDERED: PROMETHAZINE 25 MG TABLET PO PRN (16:29)
--- NOTE | 2019-01-30 15:54 | Operative Note ---
DATE OF OPERATION: 01/24/2019 PREOPERATIVE DIAGNOSIS: Right lower quadrant pain. POSTOPERATIVE DIAGNOSIS: Right lower quadrant pain with Meckel's diverticulum. PROCEDURE: Laparoscopic appendectomy and Meckel's diverticulectomy. SURGEON: Nasreen Freeman M.D. FINDINGS: Mild erythema of the appendix and terminal ileum without exudate, unremarkable anatomic Meckel's diverticulum without inflammation. DESCRIPTION OF PROCEDURE: Under general anesthesia, the patient's abdomen was prepped and draped in a sterile field. Supraumbilical incision was made and Veress needle was inserted uneventfully. Abdomen was insufflated with 3 liters of CO2. A 12 mm port was placed and laparoscope was placed. Under videoscopic guidance, a 5 mm port was placed in the suprapubic midline and a 12 mm port was placed in the left lower quadrant. The patient was placed in deep Trendelenburg position and rotated to the left. The terminal ileum was identified and was followed to the cecum. There was slight erythema and increased vascularity of the vessels of the terminal ileum, but there was no acute inflammation or exudate. The base of the cecum was inspected and the appendix was found. The appendix appeared to be slightly erythematous, but there was no evidence of true inflammation. The appendix was grasped, and a window was made in the mesoappendix at the base. The mesoappendix and the appendiceal base were transected using an Endo MYRIAM stapler. The areas of the staple line were inspected, and there was no bleeding. The terminal ileum was followed proximally, and a Meckel's diverticulum off the antimesenteric border of the ileum was noted. It was transected using the Endo MYRIAM stapler. That staple line was inspected and it was secure. There was no evidence of stenosis. Further evaluation of the small bowel proximally to the ligament of Treitz did not reveal any other pathology. The pelvis was inspected. There was no other pathology. Patient tolerated the procedure well. The air was allowed to escape from the abdomen and the ports were removed. Fascia at the umbilicus was closed with interrupted 0 Vicryl. Skin incisions were closed with abel. The patient tolerated the procedure well. She was awakened, transferred to a bed, and taken to the postanesthetic care unit in stable, satisfactory condition. LCS:lore Job ID: [id number] Doc ID: [id number] Nasreen Freeman M.D.
== END 2019-01-26 17:21 | disposition home or self-care (01) ==
LOC: MEDSUR 08:40 → ED 08:40 → MEDSUR 12:11
PROVIDERS: ADMIT Family Medicine Adult Medicine; ATTEND Family Medicine Adult Medicine
PROC: LAPAPPY (ICD-10-PCS; 2019-01-24 13:06)